=== PATIENT | female | born 1970 | race Hispanic/Latino ===

== ENCOUNTER → 2017-09-22 | Day surgery (SDC) | payer BC, MEDICARE ==
[2017-09-20 12:41] LABS: BASOPHILS % 0.7 % (0.0-1.0); EOSINOPHILS # (AUTO) 0.3 (0.0-0.4); EOSINOPHILS % 5.9 % (0.0-6.0); HEMATOCRIT 42.3 % (34.2-44.1); HEMOGLOBIN 14.5 g/dL (12.0-16.0); LYMPHOCYTES # (AUTO) 2.5 (1.0-3.2); LYMPHOCYTES % 42.2 % (18.0-39.1); MEAN CORPUSCULAR HEMOGLOBIN 29.8 pg (28-32); MEAN CORPUSCULAR HGB CONC 34.3 g/dL (31-35); MEAN CORPUSCULAR VOLUME 86.9 fL (81-99); MONOCYTES # (AUTO) 0.4 (0.2-0.8); NEUTROPHILS # (AUTO) 2.6 (2.1-6.9); NEUTROPHILS % 44.9 % (38.7-80.0); PLATELET COUNT 213 x10e3/uL (140-360); RED BLOOD COUNT 4.87 x10e6/uL (3.6-5.1)
[2017-09-20 13:04] LABS: ANION GAP 12.3 mmol/L (8-16); BLOOD UREA NITROGEN 11 mg/dL (7-26); BUN/CREATININE RATIO 16 (6-25); CALCIUM 10.8 mg/dL (8.4-10.2); CARBON DIOXIDE 24 mmol/L (22-29); CHLORIDE 106 mmol/L (98-107); CREATININE, SERUM 0.68 mg/dL (0.57-1.11); EST GLOMERULAR FILTRATION RATE > 60 ML/MIN (60-); GLUCOSE 94 mg/dL (74-118); POTASSIUM 4.3 mmol/L (3.5-5.1); SODIUM 138 mmol/L (136-145)
[~2017-09-22] MED LIST: BUPIVACAINE 0.25%/EPI 30ML SDV INJ ONE; CARAFATE1 GM/10 ML PO; DEXAMETHASONE SOD PHOS INJ 4 MG/ML VIAL ONE; FENTANYL CITRATE/PF 100MCG/2 ML INJ ONE; FERROUS SULFAT325 MG; FISH OIL 1,0001 EAC2 PO; FOLIC ACID1 MG PO; HYDROCODONE; HYDROMORPHONE 1MG/1ML INJ ONE; IRON PO; KETOROLAC TROMETHAMINE 30 MG/ML VIAL ONE; LIDOCAINE HCL 2% LOCAL INJ 5 ML SDV VIAL INJ ONE; MIDAZOLAM HCL 2 MG/2 ML VIAL ONE; ONDANSETRON HCL INJ 2 MG/ML VIAL ONE; PANTOPRAZOLE SO40 MG PO; PROPOFOL IV EMULSION 10 MG/ML 20 ML VIAL ONE; SEVOFLURANE INHAL SOLN 250 ML PEN BTL ONE; ST. JOSEPH ASPI81 MG PO; VENLAFAXINE HCL75 M1 PO; VIT B12 SC; VIT D2 PO; Z-PAK
--- NOTE | 2017-09-22 12:36 | Operative Report ---
DATE OF PROCEDURE: September 22, 2017 PREOPERATIVE DIAGNOSIS: A large ganglion cyst of the right anterior wrist. POSTOPERATIVE DIAGNOSIS: A large ganglion cyst of the right anterior wrist. OPERATION PERFORMED: Excision of ganglion cyst of the right anterior wrist. ANESTHESIA: General. COMPLICATIONS: None. ESTIMATED BLOOD LOSS: Minimal. DESCRIPTION OF PROCEDURE: With the patient lying in bed in the supine position, under good general anesthesia, the right arm and hand were prepped with Betadine solution and draped in the usual manner. The area overlying the cyst was then infiltrated with 1/4 percent Marcaine solution. An incision was made in the anterior aspect of the right wrist in the radial side and was carried down into the subcutaneous tissue. Immediately, a large multilobulated cyst was encountered. This extended both towards the hand and also towards the arm and laterally around the lateral aspect of the of the wrist. In the top aspect, it was tightly adherent obviously from chronic inflammation to the radial artery. This was slowly and carefully from the radial artery, and the cyst was then slowly and carefully dissected. There was a significant blowout of the fascial plane with the large cyst coming through it. The cyst had a rather large neck. The cyst was then resected and sent for pathological examination. The base of the cyst was suture ligated with 3-0 Prolene suture. Once this was done, the whole area was thoroughly irrigated. Perfect hemostasis was ascertained. The fascia overlying the area of the cyst was then closed with interrupted sutures of 3-0 Vicryl. The subcutaneous tissue was approximated with 3-0 Vicryl, and the skin was closed with subcuticular 5-0 Vicryl. Benzoin and Steri-Strips were applied. A dressing was placed. The sponge, lap and needle count was correct. Patient tolerated the procedure well and returned to the recovery room in stable condition. Job#: [id number]
== END | disposition home or self-care (01) ==
LOC: OR 06:25
PROVIDERS: ATTEND Surgery
DX: M67.431 Ganglion, right wrist (principal); R53.1 Weakness; K44.9 Diaphragmatic hernia without obstruction or gangrene; K21.9 Gastro-esophageal reflux disease without esophagitis; F41.9 Anxiety disorder, unspecified; Z01.810 Encounter for preprocedural cardiovascular examination; Z01.812 Encounter for preprocedural laboratory examination
CPT/HCPCS: 25111; 36415; 80048; 81025; 85025; 88304; 93005; J1100; J1170; J1885; J2001; J2250; J2405

== ENCOUNTER → 2017-10-05 | Outpatient (CLI) | payer BC, MEDICARE ==
[~2017-10-05] MED LIST changes: -BUPIVACAINE 0.25%/EPI 30ML SDV INJ ONE; -DEXAMETHASONE SOD PHOS INJ 4 MG/ML VIAL ONE; -FENTANYL CITRATE/PF 100MCG/2 ML INJ ONE; -HYDROMORPHONE 1MG/1ML INJ ONE; -KETOROLAC TROMETHAMINE 30 MG/ML VIAL ONE; -LIDOCAINE HCL 2% LOCAL INJ 5 ML SDV VIAL INJ ONE; -MIDAZOLAM HCL 2 MG/2 ML VIAL ONE; -ONDANSETRON HCL INJ 2 MG/ML VIAL ONE; -PROPOFOL IV EMULSION 10 MG/ML 20 ML VIAL ONE; -SEVOFLURANE INHAL SOLN 250 ML PEN BTL ONE
--- NOTE | 2017-10-05 15:21 | Diagnostic Imaging Report ---
Parathyroid Scan Reason for exam: Hyperparathyroidism Radiopharmaceutical: Tc-99m sestamibi 25 mCi After intravenous administration of the radiopharmaceutical, immediate and 2-hour planar images of the neck and upper chest were obtained. Tomographic images of the neck and upper chest were also obtained following the initial planar images. Distribution of tracer activity appears physiologic throughout the neck and upper chest on the planar and tomographic images. No focal areas of increased tracer accumulation are identified. On the delayed planar images, washout of tracer from the thyroid is complete with no focal areas of persistent tracer activity. Impression: Negative parathyroid scan No enlarged hypermetabolic parathyroid glands are identified. Signed by: Dr. Mnial Ceballos M.D. on 10/05/2017 3:18 PM
== END ==
LOC: NM 08:28
PROVIDERS: ATTEND Internal Medicine Endocrinology, Diabetes & Metabolism
DX: E21.3 Hyperparathyroidism, unspecified (principal)
CPT/HCPCS: 78071; A9500

== ENCOUNTER → 2018-01-10 | Outpatient (CLI) | payer BC, MEDICARE ==
--- NOTE | 2018-01-10 09:19 | Diagnostic Imaging Report ---
EXAMINATION: Head CT without contrast. HISTORY:Headache and dizziness. COMPARISON:None. TECHNIQUE: Multidetector axial images were obtained from the foramen magnum to the vertex without contrast. The images were reconstructed using brain and bone algorithms. Thin section brain images were reformatted into coronal and sagittal planes. Intravenous contrast: None IMAGE QUALITY: Acceptable. FINDINGS: Skull/scalp: No lytic or blastic. lesions. No surgical changes. Parenchyma: No abnormal density. No acute hemorrhage, mass or acute major vascular territorial infarct. Arteries: No density suggestive of thrombosis. Dural sinuses: No abnormal density suggestive of thrombosis. Ventricles: No hydrocephalus or displacement. Extra-axial spaces: No abnormal density. Brain volume: Normal for age. Craniocervical junction: No mass, Chiari malformation, or basilar invagination. Sella: Partial empty sella. Paranasal/mastoid sinuses: Imaged portions unremarkable. IMPRESSION: No acute intracranial abnormality. Signed by: Dr. Dafne De Dios M.D. on 01/10/2018 9:16 AM
== END ==
LOC: CT 08:38
PROVIDERS: ATTEND Internal Medicine
DX: R42 Dizziness and giddiness (principal); G93.9 Disorder of brain, unspecified
CPT/HCPCS: 70450

== ENCOUNTER → 2021-03-19 | Outpatient (CLI) | payer OTHER, MEDICARE | LOC: MAMMO 08:13 | PROVIDERS: ATTEND Internal Medicine | DX: Z12.31 Encounter for screening mammogram for malignant neoplasm of breast (principal) | CPT/HCPCS: 77067 ==

== ENCOUNTER → 2021-04-19 | Outpatient (CLI) | payer OTHER | LOC: NM 09:02 | PROVIDERS: ATTEND Internal Medicine Endocrinology, Diabetes & Metabolism | DX: E83.52 Hypercalcemia (principal) | CPT/HCPCS: 78071; A9512 ==

== ENCOUNTER → 2024-09-30 | Outpatient (REF) | payer BC | LOC: MAMMO 12:13 | PROVIDERS: ATTEND Internal Medicine | DX: Z12.31 Encounter for screening mammogram for malignant neoplasm of breast (principal) | CPT/HCPCS: 77067 ==